=== PATIENT | male | born 1955 | race African-American/Black ===

== ENCOUNTER 2017-09-04 05:42 | Inpatient (IN) | payer OTHER ==
[2017-09-04] VITALS (11 sets, daily range): BP systolic 122–144; BP diastolic 68–93
[2017-09-04] MEDS ORDERED: ACETAMINOPHEN 325 MG TABLET ONE (08:30)
[2017-09-04] MEDS ORDERED: CELECOXIB 100 MG CAPSULE ONE (08:30)
[2017-09-04] MEDS ORDERED: oxyCODONE HCL SR 10MG TAB.SR.12H PO ONE (08:30)
[2017-09-04] MEDS ORDERED: TRANEXAMIC ACID 3,000 MG in SODIUM CHLORIDE IRRIG SOLUTION 70 ML IR ONE (09:00)
[2017-09-04] MEDS ORDERED: BUPIVACAINE 0.75% DEXT-PF 2 ML AMPUL ONE (09:00)
[2017-09-04] MEDS ORDERED: MORPHINE SULFATE/PF 10 MG/10ML (1MG/ML) AMPUL ONE (09:00)
[2017-09-04] MEDS ORDERED: MIDAZOLAM HCL 2 MG/2ML VIAL ONE (09:00)
[2017-09-04] MEDS ORDERED: KETOROLAC TROMETHAMINE INJ 30 MG/ML VIAL ONE (09:02)
[2017-09-04] MEDS ORDERED: BUPIVACAINE 0.25% 75 MG/30 ML VIAL ONE (09:02)
[2017-09-04] MEDS ORDERED: BACITRACIN 50000 UNITS/VIAL ONE (09:02)
[2017-09-04] MEDS ORDERED: ACETAMINOPHEN 325 MG TABLET PO PRN (12:00)
[2017-09-04] MEDS ORDERED: SENNOSIDES 8.6 MG TABLET PO PRN (12:00)
[2017-09-04] MEDS ORDERED: HYDROMORPHONE INJ 0.5 MG/0.5 ML SYRINGE IV PRN (12:00)
[2017-09-04] MEDS ORDERED: DOCUSATE SODIUM 250 MG CAPSULE PO PRN (12:00)
[2017-09-04] MEDS ORDERED: BISACODYL SUPP (10 MG) 10 MG/SUPP.RECT SUPP.RECT RC PRN (12:00)
[2017-09-04] MEDS ORDERED: ZOLPIDEM TARTRATE 5 MG TABLET PO PRN (12:00)
[2017-09-04] MEDS ORDERED: HYDROCODONE/APAP 5/325MG 1 EACH TABLET PO PRN (12:00)
[2017-09-04] MEDS ORDERED: diphenhydrAMINE HCL 50 MG/ML VIAL IV PRN (13:00)
[2017-09-04] MEDS ORDERED: NALOXONE HCL 0.4 MG/ML AMPUL IV PRN (13:00)
[2017-09-04] MEDS ORDERED: ONDANSETRON HCL/PF 4 MG/2 ML VIAL IVP PRN (13:00)
[2017-09-04] MEDS ORDERED: oxyCODONE IR immediate release 5 MG PO PRN (13:00)
--- NOTE | 2017-09-04 13:02 | NUR ---
PER DR CHERRY, STAT BMP AND CBC
--- NOTE | 2017-09-04 13:20 | NUR ---
RN INTIIAL NOTES: PATIENT ARRIVED FROM OR POST RIGHT TOTAL KNEE ARTHROPLASTY. PATIENT AOX3. NONLABORED BREATHING NOTED ON ROOM AIR. REFUSING NASAL CANNULA AT THE MOMENT. IV SITE ON RIGHT AC GAUGE 18 PATENT AND INTACT. BED IN LOWEST LOCKED POSITION. CALL LIGHT WITHIN REACH. WILL CONTINUE TO MONITOR
[2017-09-04 13:50] LABS: BASOPHILS # (AUTO) 0.1 /CMM (0.0-0.2); BASOPHILS % (AUTO) 0.8 % (0.0-2.0); EOSINOPHILS % (AUTO) 0.6 % (0.0-6.0); HEMATOCRIT 39 % (39-51); HEMOGLOBIN 13.1 g/dL (13.5-17.5); LYMPHOCYTES # (AUTO) 1.5 /CMM (0.8-4.8); LYMPHOCYTES % (AUTO) 18.5 % (20.0-44.0); MEAN CORPUSCULAR HGB CONC 34 g/dl (31.0-36.0); MEAN CORPUSCULAR VOLUME 92 fL (80-96); MONOCYTES # (AUTO) 0.4 /CMM (0.1-1.30); MONOCYTES % (AUTO) 5.5 % (2.0-12.0); NEUTROPHILS # (AUTO) 5.9 /CMM (1.8-8.9); NEUTROPHILS % (AUTO) 74.6 % (43.0-81.0); PLATELET COUNT (AUTO) 273 /CMM (150-450); RDW COEFFICIENT OF VARIATION 12.8 (11.5-15.0); RED BLOOD CELL COUNT(AUTO) 4.23 MIL/uL (4.5-6.0); WHITE BLOOD COUNT (AUTO) 7.9 K/uL (4.3-11.0)
[2017-09-04 14:01] LABS: CALCIUM, SERUM 8.7 mg/dL (8.5-10.1); POTASSIUM 4.5 mmol/L (3.5-5.1)
--- NOTE | 2017-09-04 14:35 | NUR ---
PER DR GOMEZ ADMIT TO TELE FOR FIRST 24 HOURS THEN TO MED/SURG ASSESS LOC AND LEVEL OF PAIN Q 4 HOURS FOR 24 HOURS RR Q1 HOUR FOR 24 HOURS THEN Q 4 HOURS FOR 24 HOURS PULSE OXIMETER FOR 24 HOURS CONTINUOSLY ONLY FOLLOW ANESTHESIOLOGIST'S ORDERS FOR PAIN MEDICATIONS X24 HOUR OR DR KURT MURPHY. NARCAN 0.4 MG VIAL AND SYRINGE AT BEDSIDE and O2 AT 8/MIN BY MASK PRN FOR SO2 LESS THAN 92 PERCENT OR RR OF 8 IF UNABLE TO VOID Q 8 HOURS, STRAIGHT IN AND OUT BLADDER CATHETER AND NOTIFY ANESTHESIOLOGIST REGULAR DIET TRAPEZOID BED CPM MACHINE WALKER WBAT REMOVE BENOIT CATHETER POST OP DAY 1 DVT PUMPS
[2017-09-04] MEDS ORDERED: DIVA500T2 PO (15:08)
[2017-09-04] MEDS: IV LR 1000 ML 1,000 ML IV PRN (15:37)
--- NOTE | 2017-09-04 15:59 | NUR ---
HOME MEDICATION- PER AND PATIENT- HOME MEDICATION DEPAKOTE 500 MG 2 TABLETS AT NIGHT TIME EVERY DAY. DR CHERRY INFORMED. NO ORDERS TO CONTINUE
[2017-09-04] MEDS ORDERED: diphenhydrAMINE HCL 25 MG CAPSULE PO ONE (16:01)
[2017-09-04] MEDS ORDERED: hydrOXYzine 10 MG TABLET PO PRN ×2 (16:30)
[2017-09-04] MEDS ORDERED: MAG HYDROX/AL HYDROX/SIMETH 30 ML UDC PO PRN (16:30)
[2017-09-04] MEDS ORDERED: ONDANSETRON HCL/PF 4 MG/2 ML VIAL IV PRN (16:30)
[2017-09-04] MEDS ORDERED: MAGNESIUM HYDROXIDE 30 ML UDC PO PRN (16:30)
[2017-09-04] MEDS ORDERED: diphenhydrAMINE HCL 25 MG CAPSULE PO PRN (16:30)
[2017-09-04] MEDS ORDERED: LORAZEPAM INJ 2 MG/ML VIAL IV PRN (16:30)
[2017-09-04] MEDS ORDERED: MENTHOL/CETYLPYRD (CEPACOL) 1 LOZ LOZENGE PO PRN (16:30)
[2017-09-04] MEDS: DOCUSATE SODIUM 100 MG CAPSULE PO SCH (17:00)
--- NOTE | 2017-09-04 17:48 | NUR ---
PATIENT REFUSING DOCUSATE- BENEFITS AND RISKS EXPLAINED AT LENGTH
[2017-09-04] MEDS: CEFAZOLIN SODIUM 1 GM in IV SODIUM CHLORIDE 0.9% 50 ML IV SCH (17:49)
--- NOTE | 2017-09-04 17:50 | NUR ---
RN NOTES: DOCUSATE WASTED
--- NOTE | 2017-09-04 19:12 | NUR ---
[facility]COE IN CASSETTE, DISCUSSED WITH JOSELINE GOMEZ'S ORDERS
--- NOTE | 2017-09-04 19:20 | NUR ---
RN CLOSING NOTES: PATIENT RESTING IN BED. NONLABORED BREATHING NOTED ON ROOM AIR. NO SIGNS OF DISTRESS. PATIENT DENYING PAIN AT THE MOMENT. IV SITE ON RIGHT AC INFUSING ORDERED LR. PATIENT TOLERATED LUNCH WELL. NAUSEA AND NO VOMITING NOTED. NO SIGNS OF ASPIRATION NOTED DURING SWALLOWING. PATIENT REMAINED AOX3 DURING SHIFT, ASSESSED PER DR GOMEZ'S ORDERS -CHECK VS TAB. PATIENT ON CONTINUOUS PULSE OXMIETRY DURING SHIFT.SPO2 REMAINED GREATER THAN 93% PERCENT AND RR REMAINED GREATER THAN 16 DURING SHIFT. PATIENT EDUCATED ON INCENTIVE SPIROMETER AND ENCOURAGED TO USE IT EVERY HOUR. NO SEIZURES NOTED DURING SHIFT. PT INFORMED OF DR GOMEZ'S ORDERS FOR WALKER, CPM, AND TRAPEZOID BED. PATIENT SINUS RHYTHM THROGHOUT SHIFT. BED IN LOWST LOCKED POSITION.CALL LIGHT WITHIN REACH. ENDORSED TO JOSELINE AND DISCUSSED ALL OF DR GOMEZ'S ORDERS WITH HER
--- NOTE | 2017-09-04 20:00 | NUR ---
TELE NETWORK STRATEGIST INITAIL NOTES PT SEEN IN BED SLEEPING COMFORTABLY IN BED WITH IVF OF LR AT 125ML/HR INFUSING AT THIS TIME, BREATHING EVEN AND NON-LABORED WITH 98 % O2 SAT ON CONTINUOUS PULSE OX METER. VITAL SIGNS WITHIN NORMAL LIMIT. NO ACUTE DISTRESS NOTED. BENOIT TO GRAVITY. DRESSING DRY AND INTACT. KEPT HIM WARM AND COMFORTABLE AT ALL TIMES. TELE SR PER MONITOR. PLACE CALL LIGHT AT REACH.
[2017-09-04] MEDS: DIVALPROEX SODIUM 500 MG TABLET.DR PO SCH (21:42)
[2017-09-04] MEDS: PANTOPRAZOLE 40 MG TABLET.DR PO SCH (21:42)
[2017-09-04] MEDS ORDERED: DIVALPROEX SODIUM 500 MG TABLET.DR PO SCH (22:00)
--- NOTE | 2017-09-04 22:00 | NUR ---
HIGHWAY ADMINISTRATIVE ENGINEER/NOTES PT WOKE UP DENIES ANY PAIN OR ANY DISCOMFORT. WARM UP HIS DINNER TRAY AND ROUTINE MEDS GIVEN ORDERED. IVF STILL INFUSING. VITAL SIGNS WITHIN NORMAL LIMIT. KEPT HIM WARM AND COMFORTABLE AT ALL TIMES. WILL CONTINUE TO MONITOR.
[2017-09-05] MEDS: IV LR 1000 ML 1,000 ML IV PRN ×2 (01:31→12:51)
[2017-09-05] MEDS: CEFAZOLIN SODIUM 1 GM in IV SODIUM CHLORIDE 0.9% 50 ML IV SCH (01:34)
[2017-09-05] MEDS: HYDROCODONE/APAP 10/325MG 1 EA TABLET PO PRN ×4 (03:06→17:24)
--- NOTE | 2017-09-05 03:34 | NUR ---
TELE REFRIGERATION ENGINEER NOTES PT WOKE UP AND COMPLAINING OF PAIN ON HIS RIGHT KNEE, NORCO TABLET GIVEN ORDERED. HE ALSO REQUESTED TO HAVE HIS BEONIT OUT BECAUSE OF DISCOMFORT EVERY TIME HE MOVES. BENOIT OUT WITH ERIC COLORED URINE OUTPUT 500ML. HE ALSO URINATE ON URINAL WITHOUT ANY DISCOMFORT. HE STATED "THANK YOU MUCH FEEL BETTER AFTER YOU REMOVED TH BENOIT. ENCOURAGE TO USED THE SPIROMETER AND TEACHING HOW TO USED AND PURPOSE OF IT. KEPT HIM WARM AND COMFORTABLE AT ALL TIMES. PLACE CALL LIGHT AT REACH. WILL CONTINUE TO MONITOR.
[2017-09-05 05:00] VITALS: BP 130/78
--- NOTE | 2017-09-05 07:00 | NUR ---
TELE SENIOR DOT NET DEVELOPER CLOSING NOTES PT SEEN BY DR MURPHY THIS MORNING AND HE ASKED FOR ANOTHER PAIN MEDICATION. NORCO TABLET GIVEN ORDERED. IVF STILL INFUSING AND BENOIT WERE REMOVED PER TP REQUESTED. STABLE JACLYN THE NIGHT AND SLEPT WELL. ALL DUE MEDS GIVEN. O2 SAT STABLE JACLYN THE NIGHT AND RESPIRATION WELL,. KEPT HIM WARM AND COMFORTABLE AT ALL TIMES. RIGHT LEG WITH CPM MACHINE STILL WORKING AT THIS TIME AND PT ALSO AWARE TO USED THE SPIROMETER . TELE SR PER MONITOR. PLACE CALL LIGHT AT REACH. ENDORSE .
--- NOTE | 2017-09-05 07:21 | NUR ---
REGULATORY AGENCY DIRECTOR OPENING NOTES RECEIVED PT FROM NIGHTSHIFT NURSE IN STABLE CONDITION. PT IS A/O X3. NO SOB OR SIGNS OF DISTRESS NOTED. BREATHING IS EVEN AND UNLABORED. HE DENIES ANY PAIN AT THIS TIME. CPM MACHINE NOTED. IV TO RIGHT AC NOTED TO BE PATENT AND INTACT. PT TOLERATING LR INFUSION WELL. NO REDNESS OR SIGNS OF DISTRESS NOTED. BED IN LOW LOCKED POSITION, SIDE RAILS UP X2, CALL LIGHT WITHIN REACH. WILL CONTINUE TO MONITOR
[2017-09-05 08:00] VITALS: BP 138/98
[2017-09-05] MEDS: ASPIRIN 325 MG TABLET PO SCH (08:24)
[2017-09-05] MEDS: DOCUSATE SODIUM 100 MG CAPSULE PO SCH ×2 (08:28→16:07)
[2017-09-05 16:00] VITALS: BP 164/96
[2017-09-05 17:41] LABS: BASOPHILS % (AUTO) 0.3 % (0.0-2.0); EOSINOPHILS % (AUTO) 0.2 % (0.0-6.0); HEMATOCRIT 35 % (39-51); HEMOGLOBIN 11.6 g/dL (13.5-17.5); LYMPHOCYTES # (AUTO) 1.5 /CMM (0.8-4.8); LYMPHOCYTES % (AUTO) 14.1 % (20.0-44.0); MEAN CORPUSCULAR HGB CONC 33 g/dl (31.0-36.0); MEAN CORPUSCULAR VOLUME 94 fL (80-96); MONOCYTES % (AUTO) 10.1 % (2.0-12.0); NEUTROPHILS # (AUTO) 7.8 /CMM (1.8-8.9); NEUTROPHILS % (AUTO) 75.3 % (43.0-81.0); PLATELET COUNT (AUTO) 249 /CMM (150-450); RDW COEFFICIENT OF VARIATION 13.1 (11.5-15.0); RED BLOOD CELL COUNT(AUTO) 3.69 MIL/uL (4.5-6.0); WHITE BLOOD COUNT (AUTO) 10.4 K/uL (4.3-11.0)
[2017-09-05 17:58] LABS: CALCIUM, SERUM 8.4 mg/dL (8.5-10.1); CREATININE 1.1 mg/dL (0.6-1.3); POTASSIUM 4.2 mmol/L (3.5-5.1)
--- NOTE | 2017-09-05 18:58 | NUR ---
MS RN CLOSING NOTES PT REMAINS STABLE. PAIN PROPERLY MANAGED WITH PAIN MEDICATIONS. IV REMAINS PATENT AND INTACT. VITALS REMAIN STABLE. SAFETY MEASURES IN PLACE. WILL ENDORSE TO NIGHTSHIFT NURSE FOR JESUS MANUEL
[2017-09-05] MEDS: MORPHINE SULFATE INJ 4 MG/ML DISP.SYRIN IM PRN (19:53)
[2017-09-05 20:00] VITALS: BP 153/95
[2017-09-05] MEDS: PANTOPRAZOLE 40 MG TABLET.DR PO SCH (21:15)
[2017-09-05] MEDS: DIVALPROEX SODIUM 500 MG TABLET.DR PO SCH (21:15)
[2017-09-06] MEDS: MORPHINE SULFATE INJ 4 MG/ML DISP.SYRIN IM PRN ×2 (02:49→08:19)
--- NOTE | 2017-09-06 02:51 | NUR ---
rn notes complained of right leg pain- morphine 4mg im given as ordered, v/s stable
--- NOTE | 2017-09-06 06:19 | NUR ---
MS RN NOTES AWAKE & RESPONSIVE. NOT IN ANY DISTRESS. NO SOB NOTED. DENIES ANY PAIN OR DISCOMFORT AT THIS TIME. WITH IV-HL PATENT & INTACT. MONITORED ACCORDINGLY. CALL LIGHT WITHIN REACH. BED IN LOWEST POSITION. SR UP X 2 FOR SAFETY. WILL ENDORSE TO NEXT SHIFT.
--- NOTE | 2017-09-06 07:20 | NUR ---
RN NOTES PT IS LAYING DOWN IN BED, SLEEPING. PT ON RA, RESPIRATIONS ARE EVEN AND UNLABORED. IV ON RAC INTACT AND SL. NO SIGNS OF DISTRESS NOTED. SAFETY MEASURES ARE IN PLACE, CALL LIGHT IS IN REACH. WILL CONTINUE TO MONITOR.
[2017-09-06 08:00] VITALS: BP 177/97
[2017-09-06] MEDS: ASPIRIN 325 MG TABLET PO SCH (08:19)
[2017-09-06] MEDS: DOCUSATE SODIUM 100 MG CAPSULE PO SCH (08:19)
[2017-09-06] MEDS: HYDROCODONE/APAP 10/325MG 1 EA TABLET PO PRN (09:46)
--- NOTE | 2017-09-06 15:00 | NUR ---
RN NOTES PT WAS DISCHARGED HOME IN STABLE CONDITION, ACCOMPANIED BY HIS . PT WAS GIVEN DISCHARGE INSTRUCTIONS AND TOLD TO FOLLOW UP WITH DR. GOMEZ WITHIN 1-2 WEEKS OF DISCHARGE. PT GIVEN PRESCRIPTION FROM DR. GOMEZ TO HAVE FILLED FOR PAIN. PT VERBALIZED UNDERSTANDING AND STATED HE WOULD MAKE HIS APPOINTMENT ON HIS OWN. SURGICAL INCISION DRESSING CHANGED BY BRAYDEN FONG IN THE AM. IV AND ID BAND WERE REMOVED. NO SIGNS OF DISTRESS NOTED. HOME HEALTH SET UP BY CASE MANAGEMENT FOR CONTINUED PHYSICAL THERAPY.
== END 2017-09-06 13:10 | disposition home health service (06) | DRG 470 ==
LOC: DS 05:42 → MED 13:36 → TELE 21:45 → MED 09-05 11:08
PROVIDERS: ADMIT Specialist; ATTEND Specialist
PROC: 0SRC0J9 Replacement of Right Knee Joint with Synthetic Substitute, Cemented, Open Approach (ICD-10-PCS; principal; 2017-09-04 07:00)
DX: M17.11 Unilateral primary osteoarthritis, right knee (principal); R56.9 Unspecified convulsions; F32.9 Major depressive disorder, single episode, unspecified; F39 Unspecified mood [affective] disorder; M10.9 Gout, unspecified; F41.9 Anxiety disorder, unspecified; D64.9 Anemia, unspecified
CPT/HCPCS: 36415; 80048-TC; 82962-TC; 85025-TC; 86850-TC; 86921-TC; 87081-TC; 88305-TC; 88311-TC; 97110-TC; 97116-TC; 97760-TC; A4216; A4217; A4606; A6402; C1713; J0690; J1200; J1885; J2250; J2270; J2274; J2310; J2370; J2405; J2704; J3490; J7040; J7120; L1830; Q0163; Z7610